=== PATIENT | female | born 1985 ===

== ENCOUNTER 2023-06-09 19:35 | Emergency (ER) | payer SELFPAY ==
[~2023-06-09] VITALS: Ht 149.9 cm; Wt 44.0 kg
[2023-06-09 19:47] VITALS: O2SAT 99
[2023-06-09 20:19] LABS: BASOPHILS % 0.2 % (0.0-2.0); EOSINOPHILS % 0.4 % (0.0-5.0); HEMATOCRIT. 39.6 % (36.0-48.0); HEMOGLOBIN. 13.4 g/dL (12.0-16.0); LYMPHOCYTES % 19.6 % (20.0-50.0); MEAN CORPUSCULAR HEMOGLOBIN 31.4 pg (28.0-32.0); MEAN CORPUSCULAR HGB CONC 33.7 g/dL (31.0-37.0); MEAN PLATELET VOLUME 9.5 fl (7.4-10.4); MONOCYTES % 6.1 % (2.0-8.0); NEUTROPHILS % 73.7 % (40.0-76.0); PLATELET 187 x1000/uL (130-400); RED BLOOD CELL COUNT 4.26 mill/uL (4.2-5.4); RED CELL DISTRIBUTION WIDTH 12.9 % (11.6-14.6)
[2023-06-09 20:26] LABS: CHLORIDE 109 mEq/L (98-107); INDEX HEMOLYSI 1 (1-3); INDEX ICTERIC 1 (1-4); INDEX LIPEMIC 1 (1-3); POTASSIUM 4.1 mEq/L (3.5-5.1); SODIUM 135 mEq/L (136-145)
[2023-06-09 20:32] LABS: ALANINE AMINOTRANSFERASE 66 IU/L (13-61); ASPARTATE AMINOTRANSFERASE 31 IU/L (15-37); BILIRUBIN TOTAL 0.4 mg/dL (0.1-1.0); CALCIUM 8.3 mg/dL (8.5-10.1); CARBON DIOXIDE 23 mEq/L (21-32); CREATININE 0.4 mg/dL (0.6-1.3); GLUCOSE 81 mg/dL (70-105); PROTEIN TOTAL 7.6 g/dL (6.0-8.3); UREA NITROGEN BLOOD 16 mg/dL (7-21)
[2023-06-09] MEDS ORDERED: SODIUM CHLORIDE 0.9% 1,000 ML IV ONE (23:15)
[2023-06-09] MEDS ORDERED: ACETAMINOPHEN 325MG TABLET PO ONE (23:15)
[2023-06-09] MEDS ORDERED: METOCLOPRAMIDE HCL 10MG/2ML VIAL IV ONE (23:15)
[2023-06-09 23:34] LABS: CLARITY URINE TURBID (CLEAR); COLOR URINE DARK YELLOW (YELLOW); GLUCOSE URINE NEGATIVE (NEGATIVE); KETONES URINE 3+ (NEGATIVE); LEUKOCYTE ESTERASE URINE 1+ (NEGATIVE); NITRITE URINE NEGATIVE (NEGATIVE); OCCULT BLOOD URINE 3+ (NEGATIVE); PH URINE 5.5 (4.5-8.0); PROTEIN URINE 1+ (NEGATIVE); SPECIFIC GRAVITY URINE 1.032 (1.005-1.030)
[2023-06-10 00:07] LABS: BACTERIA URINE 1+; SQUAMOUS EPITHELIAL CELL URINE 2+ /lpf (RARE/1+)
[2023-06-10 00:10] LABS: UCG QC LOT# 620457; UCG SCREEN POSITIVE
[2023-06-10] MEDS ORDERED: METO-293 MT (02:44)
[2023-06-10] MEDS ORDERED: ACET-2708 MT (02:44)
[2023-06-10 03:03] VITALS: BP 110/71; PULSE 65; RESP 17; TEMP 98.6
== END 2023-06-10 03:05 | disposition home or self-care (01) ==
LOC: ER 19:35
DX: O21.9 Vomiting of pregnancy, unspecified (principal); Z3A.01 Less than 8 weeks gestation of pregnancy
CPT/HCPCS: 99285; 80053; 81003; 83690; 85025; 36415; 96374; 76801; 96361; 84702; 86850; 86900; 86901; 76817; 81025; J7030